=== PATIENT | female | born 1955 | race Caucasian/White ===

== ENCOUNTER 2023-06-10 19:54 | Outpatient (OUT) | payer MEDICARE, OTHER, SELFPAY | END 2023-06-10 19:55 | disposition home or self-care (01) | LOC: SLEEP 19:55 | PROVIDERS: PCP Psychiatry & Neurology Neurology; Visit Provider Psychiatry & Neurology Neurology | DX: G47.33 Obstructive sleep apnea (adult) (pediatric) (principal); F51.01 Primary insomnia | CPT/HCPCS: 95810 ==

== ENCOUNTER 2023-07-20 19:58 | Outpatient (OUT) | payer MEDICARE, OTHER, SELFPAY | END 2023-07-20 19:59 | disposition home or self-care (01) | LOC: SLEEP 19:58 | PROVIDERS: PCP Psychiatry & Neurology Neurology; Visit Provider Psychiatry & Neurology Neurology | DX: G47.33 Obstructive sleep apnea (adult) (pediatric) (principal); F51.01 Primary insomnia | CPT/HCPCS: 95811 ==